=== PATIENT | female | born 1990 | race African-American/Black ===

== ENCOUNTER 2016-06-30 13:33 | Emergency (ER) | payer BC ==
[~2016-06-30] VITALS: Ht 165.1 cm; Wt 73.0 kg
[2016-06-30 15:28] VITALS: BP 120/77
== END 2016-06-30 16:17 | disposition home or self-care (01) ==
LOC: ER 13:40
DX: M25.512 Pain in left shoulder (principal); V49.9XXA Car occupant (driver) (passenger) injured in unspecified traffic accident, initial encounter; Y93.89 Activity, other specified; Y99.8 Other external cause status; Y92.488 Other paved roadways as the place of occurrence of the external cause
CPT/HCPCS: 73030